=== PATIENT | female | born 1960 | race Caucasian/White ===

== ENCOUNTER 2018-02-27 05:26 | Emergency (ER) | payer MEDICARE, MEDICAID ==
[~2018-02-27] VITALS: Ht 162.6 cm; Wt 81.0 kg
[2018-02-27 05:28] VITALS: BP 132/94
[2018-02-27] MEDS ORDERED: MECLIZINE CHEWABLE 25 MG TAB PO ONE (06:00)
[2018-02-27] MEDS ORDERED: MECLIZINE CHEWABLE 25 MG TAB ONE (06:12)
[2018-02-27 06:26] LABS: BASOPHILS # (AUTO) 0.07 x10^3/uL (0-0.1); BASOPHILS % (AUTO) 1 % (0-1); EOSINOPHILS # (AUTO) 0.16 x10^3/uL (0-0.4); EOSINOPHILS % (AUTO) 2 % (1-7); LYMPHOCYTES # (AUTO) 2.92 x10^3/uL (1-3.4); LYMPHOCYTES % (AUTO) 32 % (22-44); MD NO; MEAN CORPUSCULAR HGB CONC 33.8 g/dL (32.4-35.8); MEAN CORPUSCULAR VOLUME 91.7 fL (80-100); MEAN PLATELET VOLUME 8.1 fL (7.4-10.4); MONOCYTES # (AUTO) 0.61 x10^3/uL (0.2-0.8); MONOCYTES % (AUTO) 7 % (2-9); NEUTROPHILS # (AUTO) 5.53 x10^3/uL (1.8-6.8); NEUTROPHILS % (AUTO) 60 % (42-75); PLATELET COUNT 318 x10^3/uL (130-400); RED BLOOD COUNT 4.54 x10^6/uL (3.82-5.3); RED CELL DISTRIBUTION WIDTH 13.4 % (9.6-15.2)
[2018-02-27 06:37] LABS: ALBUMIN 4.1 g/dL (3.4-5.0); ANION GAP 11 mmol/L (5-15); CALCIUM 8.8 mg/dL (8.5-10.1); CHLORIDE 108 mmol/L (98-107)
[2018-02-27 06:38] LABS: CREATININE 1.07 mg/dL (0.55-1.02)
== END 2018-02-27 07:40 | disposition home or self-care (01) ==
LOC: ED 06:03
DX: R42 Dizziness and giddiness (principal); H93.13 Tinnitus, bilateral
CPT/HCPCS: 36415; 70450; 80048; 82040; 85025; 93005; 99284

== ENCOUNTER 2018-10-19 14:29 | Emergency (ER) | payer MEDICARE, MEDICAID ==
[~2018-10-19] VITALS: Ht 162.6 cm; Wt 77.3 kg
[2018-10-19 14:30] VITALS: BP 144/82
--- NOTE | 2018-10-19 14:40 | NUR ---
PT IN XRAY NOW.
--- NOTE | 2018-10-19 15:00 | NUR ---
FIRST CONTACT WITH PT. PT HAD GLF YESTERDAY. NO LOC PT REPORTS RIGHT WRIST PAIN. PT'S AOX4. RESPS EVEN AND UNLABORED.
== END 2018-10-19 16:30 | disposition home or self-care (01) ==
LOC: ED 16:00
DX: S62.034A Nondisplaced fracture of proximal third of navicular [scaphoid] bone of right wrist, initial encounter for closed fracture (principal); S60.211A Contusion of right wrist, initial encounter; G43.909 Migraine, unspecified, not intractable, without status migrainosus; W01.0XXA Fall on same level from slipping, tripping and stumbling without subsequent striking against object, initial encounter; Y93.89 Activity, other specified; Y92.410 Unspecified street and highway as the place of occurrence of the external cause; Y99.8 Other external cause status
CPT/HCPCS: 29125; 99283

== ENCOUNTER 2020-08-15 14:07 | Emergency (ER) | payer MEDICARE, MEDICAID ==
[~2020-08-15] VITALS: Ht 162.6 cm; Wt 81.0 kg
[2020-08-15 14:39] LABS: BASOPHILS % (AUTO) 1 % (0-1); EOSINOPHILS % (AUTO) 3 % (1-7); LYMPHOCYTES % (AUTO) 24 % (22-44); MEAN CORPUSCULAR HEMOGLOBIN 30.9 pg (27.0-34.8); MEAN CORPUSCULAR HGB CONC 33.5 g/dL (32.4-35.8); MONOCYTES % (AUTO) 7 % (2-9); NEUTROPHILS % (AUTO) 65 % (42-75); PLATELET COUNT 309 x10^3/uL (130-400); RED BLOOD COUNT 4.21 x10^6/uL (3.82-5.3); RED CELL DISTRIBUTION WIDTH 13.6 % (9.6-15.2)
[2020-08-15 14:43] LABS: MD NO
[2020-08-15 14:49] LABS: ALANINE AMINOTRANSFERASE 28 U/L (12-78); ANION GAP 3 mmol/L (5-15); CALCIUM 9.3 mg/dL (8.5-10.1); CHLORIDE 109 mmol/L (98-107); CREATININE 0.98 mg/dL (0.55-1.02)
[2020-08-15 14:51] LABS: ALKALINE PHOSPHATASE 60 U/L (45-117); BILIRUBIN,TOTAL 0.2 mg/dL (0.2-1.0)
--- NOTE | 2020-08-15 17:00 | NUR ---
cna per diem: pt from lobby to room 22
--- NOTE | 2020-08-15 17:19 | NUR ---
PROVIDER AT BEDSIDE TO DO EVALUATION.
[2020-08-15] MEDS ORDERED: FAMOTIDINE 20 MG TABLET PO ONE (17:30)
[2020-08-15] MEDS ORDERED: ONDANSETRON ODT 8 MG PO ONE (17:30)
[2020-08-15] MEDS ORDERED: MECLIZINE CHEWABLE 25 MG TAB PO PRN (17:30)
[2020-08-15 17:36] LABS: MICROSCOPIC NOT IND
--- NOTE | 2020-08-15 17:44 | NUR ---
PT TO CT IN RADIOLOGY. WILL MEDICATE UPON RETURN.
[2020-08-15] MEDS ORDERED: FAMOTIDINE 20 MG TABLET ONE (17:49)
[2020-08-15] MEDS ORDERED: ONDANSETRON ODT 4 MG ONE (17:50)
[2020-08-15] MEDS ORDERED: MECLIZINE CHEWABLE 25 MG TAB ONE (17:50)
[2020-08-15] MEDS ORDERED: OMNIPAQUE 350 MG/ML, 100ML BOTTLE ONE (17:59)
[2020-08-15 18:05] VITALS: BP 136/71
[2020-08-15] MEDS ORDERED: ONDANSETRON ODT 8 MG ONE (18:15)
--- NOTE | 2020-08-15 19:12 | NUR ---
GAVE PT POSIBLE 4 MG OF ZOFRAN INSTEAD OF 8 MG AFTER PROVIDER CHANGED FROM 4MG TO 8MG TAB PO. HAD 4MG PULLED AND 8MG PULLED.
== END 2020-08-15 19:33 | disposition home or self-care (01) ==
LOC: ED 18:29
DX: K29.00 Acute gastritis without bleeding (principal); H81.10 Benign paroxysmal vertigo, unspecified ear; R94.31 Abnormal electrocardiogram [ECG] [EKG]; G43.909 Migraine, unspecified, not intractable, without status migrainosus
CPT/HCPCS: 36415; 71045; 74177; 76700; 80053; 81003; 83690; 84443; 85025; 93005; 99285; Q0162; Q9967